=== PATIENT | female | born 1945 | race Caucasian/White ===

== ENCOUNTER 2018-04-24 10:04 | Emergency (ER) | payer MEDICARE ==
--- NOTE | 2018-04-24 10:09 | ED Physician Documentation ---
Dyspnea - HISTORIAN Historian: patient - HPI Stated Complaint: feeling weird Chief Complaint: Dyspnea Onset: other (just about 20 min ago and lasted a few min ) Duration: gone now Initiating Event: other (she is unsure of the cause) Exacerbated By: nothing Associated Symptoms: other (She states over the last month she has two or three episodes of "something is just not right" She reports her physican said she needed to go the ER for this to have it checked. So she felt bad about 20 min ago> she cannot explain her feelings but she did have some shortness of breath and feeling "bad" she explains some weakness. NO one sided weakness. No issues with speech. Generalized weakness ) Further Comments: no - ROS CONST: no problems EYES/ENT: none GI/: none NEURO/PSYCH: denies: headache MS/SKIN/LYMPH: denies: rash - PAST HX Lung Disease: COPD Cardiac Disease: A-Fib PE Risk Factors: hypertension Surgeries/Procedures: other Immunizations: UTD - SOCIAL HX Smoking History: quit greater than 1 year Alcohol Use: none Drug Use: none - FAMILY HX Family History: none - REVIEWED ASSESSMENTS Nursing Assessment Reviewed: Yes Vitals Reviewed: Yes Progress - Progress Progress: 1100: PT and INR not available DG 1145: Walking in all with son. No complaints DG 1217: results discussed. She states her physician is aware of her pulse rate and the 50's is where they are aiming. She states prior to the med switch recently it was dropping into the 40's. She states she "Feels fine now" . Denies any other complaints. She is aware to follow up with PCP On Thursday about today's episode - possible holter monitor was discussed DG ED Results Lab/Radiology - Radiology Radiology Impressions: PA and lateral chest Clinical history: Shortness of breath since this morning. Findings: Examination of the chest in PA and lateral views with no prior films for comparison demonstrates the lungs to be hyperinflated but clear. Cardiac silhouette is enlarged and aorta is atherosclerotic. Monitor leads superimpose the chest. Impression: 1. Hyperinflation with diminished lung markings in the upper lung zones suggesting emphysema. 2. Cardiomegaly and aortic atherosclerosis. Electronically signed on Apr 24, 2018 11:10:35 AM CDT by: Jan Mccormick CT pulmonary angiogram Clinical history: Shortness of breath since this morning. Rule out pulmonary embolus. Technique: CT pulmonary angiography is performed with intravenous infusion of contrast. Sliding sagittal and coronal MIP reconstructions were performed by the technologist. Findings: The lungs are free of coalescent infiltrate. There is no pleural effusion or significant pleural thickening. Paraseptal emphysema seen in the right lower lobe. The vascular structures enhance normally. There is no mediastinal or hilar mass or significant adenopathy. Vascular calcification is present in the thoracic aorta with extension into the origins of the great vessels and coronary arteries. There is no filling defect in the pulmonary arteries or vascular cutoff to suggest a diagnosis of pulmonary embolism. Impression: 1. No pulmonary embolus. 2. Emphysema. 3. Vascular calcification. Electronically signed on Apr 24, 2018 12:12:05 PM CDT by: Jan Mccormick Dyspnea Physical Exam - EXAM General Appearance: no acute distress, alert EENT: eye inspection normal, ENT inspection normal, no signs of dehydration Respiratory: no resp. distress, speaks full sentences, decreased air movement CVS: reg. rate & rhythm, no murmur Abdomen: non-tender, no organomegaly, no distention Skin: color nml, no rash Extremities: non-tender, normal range of motion, no edema Neuro/Psych: oriented x3, CN's nml as tested, motor nml, sensation nml, mood/ affect nml Discharge Clincal Impression: Weakness Referrals: Primary Doctor,No [REFERRING] - 2 Days Comments: 1. Continue meds 2. Follow up with PCP Thursday 3. Return to [facility] for any increased shortness of air, chest pain, fatigue etc 4. rest Condition: Stable Disposition: 01 HOME, SELF-CARE Decision to Admit: NO Date of Decison to Admit: 04/24/18 Decision Time: 12:21
[2018-04-24 10:44] LABS: BASOPHILS % 0.7 (0.0-1.5); EOSINOPHILS % 4.2 % (0.0-6.8); MEAN CORPUSCULAR HEMOGLOBIN 32.6 pg (28.0-34.0); MEAN CORPUSCULAR VOLUME 96.9 fl (80.0-100.0); MONOCYTES % 5.5 % (0.0-11.0); NEUTROPHILS # 2.5 # k/uL (1.4-7.7)
[2018-04-24 11:05] LABS: eGFR (African) > 60; eGFR (Non-African) > 60
--- NOTE | 2018-04-24 12:14 | Diagnostic Imaging Report ---
HUONG VALDES [facility] [id number] [facility] [address], [place]. [address] Report Submission Date: Apr 24, 2018 12:12:05 PM CDT Patient Study Name: GILDA OROZCO Date: Apr 24, 2018 11:34:52 AM CDT Modality Type: CT\SR Gender: F Description: CT CHEST W/ CONTRAST : 49 Institution: [facility] Physician: HUONG VALDES CT pulmonary angiogram Clinical history: Shortness of breath since this morning. Rule out pulmonary embolus. Technique: CT pulmonary angiography is performed with intravenous infusion of contrast. Sliding sagittal and coronal MIP reconstructions were performed by the technologist. Findings: The lungs are free of coalescent infiltrate. There is no pleural effusion or significant pleural thickening. Paraseptal emphysema seen in the right lower lobe. The vascular structures enhance normally. There is no mediastinal or hilar mass or significant adenopathy. Vascular calcification is present in the thoracic aorta with extension into the origins of the great vessels and coronary arteries. There is no filling defect in the pulmonary arteries or vascular cutoff to suggest a diagnosis of pulmonary embolism. Impression: 1. No pulmonary embolus. 2. Emphysema. 3. Vascular calcification. Electronically signed on Apr 24, 2018 12:12:05 PM CDT by: Jan WELCH
--- NOTE | 2018-04-24 12:14 | Diagnostic Imaging Report ---
HUONG VALDES [facility] [address] [facility] [address], [place]. [address] Report Submission Date: Apr 24, 2018 11:10:35 AM CDT Patient Study Name: GILDA OROZCO Date: Apr 24, 2018 10:47:13 AM CDT Modality Type: DX Gender: F Description: CHEST : 49 Institution: [facility] Physician: HUONG VALDES PA and lateral chest Clinical history: Shortness of breath since this morning. Findings: Examination of the chest in PA and lateral views with no prior films for comparison demonstrates the lungs to be hyperinflated but clear. Cardiac silhouette is enlarged and aorta is atherosclerotic. Monitor leads superimpose the chest. Impression: 1. Hyperinflation with diminished lung markings in the upper lung zones suggesting emphysema. 2. Cardiomegaly and aortic atherosclerosis. Electronically signed on Apr 24, 2018 11:10:35 AM CDT by: Jan WELCH
[2018-04-24 12:29] VITALS: BP 137/79
== END 2018-04-24 12:26 | disposition home or self-care (01) ==
LOC: ED 10:04
DX: R53.1 Weakness (principal)
CPT/HCPCS: 71046; 71260; 71275; 80053; 82550; 83880; 84484; 85025; 85379; 85610; 99284; Q9967; S1016